=== PATIENT | male | born 1945 | race Caucasian/White ===

== ENCOUNTER 2019-04-25 14:52 | Observation (INO) | payer OTHER ==
[2019-04-25 15:25] LABS: Absolute Lymphocytes (CBC) 1.3 K/uL (0.7-4.9); Basophils % 0.2 % (0-1.3); Hematocrit 44.7 % (39.6-49.0); Lymphocytes % 19.9 % (15.3-44.8); MPV 8.4 fL (7.6-11.3); RBC Red Blood Cell Count 5.26 M/uL (4.33-5.43)
[2019-04-25 15:26] LABS: Protime INR 0.94
[2019-04-25 15:46] LABS: ALT/SGPT 59 U/L (12-78); AST/SGOT 30 U/L (15-37); Albumin 3.8 g/dL (3.4-5.0); Alkaline Phosphatase 73 U/L (45-117); BUN Blood Urea Nitrogen 13 mg/dL (7-18); Bicarbonate 33 mmol/L (21-32); Bilirubin Direct < 0.1 mg/dL (0-0.2); Bilirubin Total 0.3 mg/dL (0.2-1.0); Glucose Level 266 mg/dL (74-106); Magnesium 2.4 mg/dL (1.8-2.4); NT PRO-BNP 72 pg/mL (<125); Protein, Total 7.7 g/dL (6.4-8.2); Sodium Level 141 mmol/L (136-145); Troponin (Emerg Dept Use Only) < 0.02 ng/mL (0.0-0.045)
[2019-04-25] MEDS ORDERED: ASPIRIN 81 MG CHEWABLE TABLET ONE (15:51)
--- NOTE | 2019-04-25 15:59 | RAD REPORT ---
EXAM DESCRIPTION: RAD - Chest Single View - 04/25/2019 3:51 pm CLINICAL HISTORY: Chest pain COMPARISON: None. TECHNIQUE: AP portable chest image was obtained 1524 hours . FINDINGS: Lung volumes are low slightly accentuating the interstitial pattern. Significant interstit ial edema or infiltrate are not suspected. No focal mass or consolidation. Heart and vasculature are normal. No measurable pleural effusion and no pneumothorax. No acute bony abnormality seen. No acute aortic findings suspected. IMPRESSION: No acute cardiopulmonary process.
--- NOTE | 2019-04-25 17:01 | EDPHYS ---
Physician Documentation [facility] Name: Gabriel Rosenthal Sr Age: 74 yrs Sex: Male : 1945 Arrival Date: 04/25/2019 Time: 14:53 Bed 18 Private MD: Felipe Barry R ED Physician Yoli Salamanca HPI: 04/25 15:07 This 74 yrs old Male presents to ER via Ambulatory with complaints of Chest pm1 Pain. 15:07 The patient or guardian reports chest pain that is located primarily in the anterior pm1 aspect of right upper chest and anterior aspect of left upper chest. Onset: this morning, at 10:00. The pain does not radiate. Associated signs and symptoms: Pertinent positives: dizziness, shortness of breath, Pertinent negatives: abdominal pain, cough, headache, nausea, palpitations, vomiting. The chest pain is described as electric-like. Duration: The patient or guardian reports multiple episodes, the episodes last approximately 5 second(s). Modifying factors: The symptoms are alleviated by nothing. the symptoms are aggravated by nothing. Severity of pain: in the emergency department the pain has resolved is a 0 / 10. The patient has not experienced similar symptoms in the past. The patient has been recently seen by a physician: the patient's primary care provider, Dr. Barry earlier today, with similar presenting complaints, and was sent to the [facility] Emergency Department for further evaluation. Patient has not been taking his blood pressure medication for the past 3-4 months. Historical: - Allergies: 14:59 No Known Allergies; sv - PMHx: 14:59 Hypertension; sv - PSHx: 14:59 None; sv - Immunization history:: Flu vaccine is not up to date. - Social history:: Smoking status: Patient/guardian denies using tobacco, the patient reports quitting approximately 1 years ago. - Ebola Screening: : No symptoms or risks identified at this time. ROS: 15:07 Constitutional: Negative for fever, chills, and weight loss, Neck: Negative for injury, pm1 pain, and swelling. 15:07 Abdomen/GI: Negative for abdominal pain, nausea, vomiting, diarrhea, and constipation, Back: Negative for injury and pain, MS/Extremity: Negative for injury and deformity, Skin: Negative for injury, rash, and discoloration. 15:07 Cardiovascular: Positive for chest pain, Negative for edema, orthopnea, palpitations. 15:07 Respiratory: Positive for shortness of breath, baseline from his history of smoking in the past. 50 years of 1 pack per day.. 15:07 Neuro: Positive for dizziness, Negative for headache, numbness, weakness. Exam: 15:07 Constitutional: This is a well developed, well nourished patient who is awake, alert, pm1 and in no acute distress. Head/Face: Normocephalic, atraumatic. Eyes: Pupils equal round and reactive to light, extra-ocular motions intact. Lids and lashes normal. Conjunctiva and sclera are non-icteric and not injected. Cornea within normal limits. Periorbital areas with no swelling, redness, or edema. ENT: Nares patent. No nasal discharge, no septal abnormalities noted. Tympanic membranes are normal and external auditory canals are clear. Oropharynx with no redness, swelling, or masses, exudates, or evidence of obstruction, uvula midline. Mucous membranes moist. Neck: Trachea midline, no thyromegaly or masses palpated, and no cervical lymphadenopathy. Supple, full range of motion without nuchal rigidity, or vertebral point tenderness. No Meningismus. Chest/axilla: Normal chest wall appearance and motion. Nontender with no deformity. No lesions are appreciated. Cardiovascular: Regular rate and rhythm with a normal S1 and S2. No gallops, murmurs, or rubs. Normal PMI, no JVD. No pulse deficits. Respiratory: Lungs have equal breath sounds bilaterally, clear to auscultation and percussion. No rales, rhonchi or wheezes noted. No increased work of breathing, no retractions or nasal flaring. Abdomen/GI: Soft, non-tender, with normal bowel sounds. No distension or tympany. No guarding or rebound. No evidence of tenderness throughout. Back: No spinal tenderness. No costovertebral tenderness. Full range of motion. Skin: Warm, dry with normal turgor. Normal color with no rashes, no lesions, and no evidence of cellulitis. MS/ Extremity: Pulses equal, no cyanosis. Neurovascular intact. Full, normal range of motion. 15:07 Neuro: Orientation: is normal, Motor: is normal, moves all fours, Sensation: is normal, no obvious gross deficits. Vital Signs: 14:59 BP 218 / 90; Pulse 92; Resp 16; Temp 98; Pulse Ox 98% ; Weight 88.45 kg; Height 5 ft. 6 sv in. (167.64 cm); Pain 0/10; 15:55 BP 191 / 75; Pulse 88; Resp 18; Pulse Ox 99% on R/A; Pain 0/10; em 17:00 BP 178 / 76; Pulse 78; Resp 18; Pulse Ox 99% on R/A; Pain 0/10; em 17:41 BP 175 / 92; Pulse 75; Resp 18; Pulse Ox 99% on R/A; Pain 0/10; em 18:30 BP 152 / 74; Pulse 60; Resp 18; Pulse Ox 95% ; wh 19:30 BP 147 / 78; Pulse 57; Resp 18; Pulse Ox 95% on R/A; wh 14:59 Body Mass Index 31.47 (88.45 kg, 167.64 cm) sv MDM: 15:23 Patient medically screened. pm1 16:57 Data reviewed: vital signs. Data interpreted: Pulse oximetry: on room air is 99 %. pm1 Interpretation: normal. Counseling: I had a detailed discussion with the patient and/or guardian regarding: the historical points, exam findings, and any diagnostic results supporting the discharge/admit diagnosis, lab results, radiology results, the need for further work-up and treatment in the hospital. 16:57 ED course: Patient blood pressure improved in the ER without any blood pressure pm1 medications given. No chest pain present during ER visit. 16:58 Physician consultation: Felipe Barry MD was called at 16:55, was contacted at 16:55, pm1 regarding patient's condition, would like to put the patient in the hospital for observation with cardiology consultation. Give Lopressor 50 mg PO for blood pressure. 04/25 15:07 Order name: Basic Metabolic Panel; Complete Time: 16:14 pm1 04/25 15:07 Order name: CBC with Diff; Complete Time: 15:34 pm1 04/25 15:07 Order name: LFT's; Complete Time: 16:14 pm1 04/25 15:07 Order name: Magnesium; Complete Time: 16:14 pm1 04/25 15:07 Order name: NT PRO-BNP; Complete Time: 16:14 pm1 04/25 15:07 Order name: PT-INR; Complete Time: 15:34 pm1 04/25 15:07 Order name: Troponin (emerg Dept Use Only); Complete Time: 16:14 pm1 04/25 15:07 Order name: XRAY Chest (1 view); Complete Time: 16:14 pm1 04/25 15:07 Order name: EKG; Complete Time: 15:08 pm1 04/25 15:07 Order name: Cardiac monitoring; Complete Time: 15:26 pm1 04/25 15:07 Order name: EKG - Nurse/Tech; Complete Time: 15:27 pm1 04/25 15:07 Order name: IV Saline Lock; Complete Time: 15:27 pm1 04/25 15:07 Order name: Labs collected and sent; Complete Time: 15:27 pm1 04/25 15:07 Order name: O2 Per Protocol; Complete Time: 16:17 pm1 04/25 15:07 Order name: O2 Sat Monitoring; Complete Time: 16:17 pm1 Administered Medications: 15:54 Drug: Aspirin Chewable Tablet 324 mg Route: PO; em 17:06 Follow up: Response: No adverse reaction em 17:06 Drug: Lopressor (metoprolol TARTRATE) 50 mg Route: PO; em 20:13 Follow up: Response: No adverse reaction; Blood pressure is lowered Disposition: 04/26 07:28 Co-signature as Attending Physician, Yoli Salamanca MD. ma2 Disposition: 04/25/19 17:00 Hospitalization ordered by Felipe Barry for Observation. Preliminary diagnosis are Chest pain, unspecified, Essential (primary) hypertension. - Bed requested for Telemetry/MedSurg (observation). - Status is Observation. - Condition is Stable. - Problem is new. - Symptoms have improved. UTI on Admission? No Signatures: Dispatcher [employer] EDCamryn Gan Stephanie, DEANDRE RN Jewel Frey, VOCATIONAL COUNSELOR VOCATIONAL COUNSELOR em Karthik Dela Cruz, OPERATOR ENGINEER OPERATOR ENGINEER pm1 Melany Mo Yoli Salamanca MD MD ma2 Corrections: (The following items were deleted from the chart) 04/25 18:06 17:00 Hospitalization Ordered by Felipe Barry MD for Observation. Preliminary diagnosis bd is Chest pain, unspecified; Essential (primary) hypertension. Bed requested for Telemetry/MedSurg (observation). Status is Observation. Condition is Stable. Problem is new. Symptoms have improved. UTI on Admission? No. pm1 20:14 18:06 04/25/2019 17:00 Hospitalization Ordered by Felipe Barry MD for Observation. wh Preliminary diagnosis is Chest pain, unspecified; Essential (primary) hypertension. Bed requested for Telemetry/MedSurg (observation). Status is Observation. Condition is Stable. Problem is new. Symptoms have improved. UTI on Admission? No. bd
--- NOTE | 2019-04-25 17:01 | ER ---
Nurse's Notes [facility] Name: Gabriel Rosenthal Sr Age: 74 yrs Sex: Male : 1945 Arrival Date: 04/25/2019 Time: 14:53 Bed 18 Private MD: Felipe Barry R Diagnosis: Chest pain, unspecified;Essential (primary) hypertension Presentation: 04/25 14:58 Presenting complaint: Patient states: intermittent midsternal chest pain, dizziness, sv SOB started today. Went to go see Dr Barry and sent him over here. Reports hx of HTN but hasn't taken his meds in months because he ran out. Denies CP at this time. Transition of care: patient was not received from another setting of care. Onset of symptoms was April 25, 2019. Risk Assessment: Do you want to hurt yourself or someone else? Patient reports no desire to harm self or others. Initial Sepsis Screen: Does the patient meet any 2 criteria? HR > 90 bpm. No. Patient's initial sepsis screen is negative. Does the patient have a suspected source of infection? No. Patient's initial sepsis screen is negative. Care prior to arrival: None. 14:58 Method Of Arrival: Ambulatory sv 14:58 Acuity: CIERRA 2 sv Historical: - Allergies: 14:59 No Known Allergies; sv - PMHx: 14:59 Hypertension; sv - PSHx: 14:59 None; sv - Immunization history:: Flu vaccine is not up to date. - Social history:: Smoking status: Patient/guardian denies using tobacco, the patient reports quitting approximately 1 years ago. - Ebola Screening: : No symptoms or risks identified at this time. Screenin:55 Abuse screen: Denies threats or abuse. Nutritional screening: No deficits noted. em Tuberculosis screening: No symptoms or risk factors identified. Fall Risk None identified. Assessment: 15:30 General: Appears in no apparent distress. comfortable, Behavior is calm, cooperative, em Denies fever. Pain: Denies pain. Pain does not radiate. Pain began 2-3 days ago. Neuro: Level of Consciousness is awake, alert, obeys commands, Oriented to person, place, time, situation, Appropriate for age. Cardiovascular: Capillary refill < 3 seconds Patient's skin is warm and dry. Rhythm is sinus rhythm. Respiratory: Airway is patent Respiratory effort is even, unlabored, Respiratory pattern is regular, symmetrical. GI: Patient currently denies nausea, vomiting. Derm: Skin is intact, is healthy with good turgor, Skin is pink, warm \T\ dry. Musculoskeletal: Capillary refill < 3 seconds, Range of motion: intact in all extremities. 15:35 General: The previous assessment is accurate. Call light remains within reach. ss 15:55 Reassessment: Patient appears in no apparent distress at this time. Patient and/or em family updated on plan of care and expected duration. Pain level reassessed. Patient is alert, oriented x 3, equal unlabored respirations, skin warm/dry/pink. Patient denies pain at this time. 17:35 Reassessment: Patient appears in no apparent distress at this time. Patient and/or em family updated on plan of care and expected duration. Pain level reassessed. Patient is alert, oriented x 3, equal unlabored respirations, skin warm/dry/pink. Patient denies pain at this time. 18:27 Reassessment: Patient appears in no apparent distress at this time. Patient and/or em family updated on plan of care and expected duration. Pain level reassessed. Patient is alert, oriented x 3, equal unlabored respirations, skin warm/dry/pink. unable to give report at this time, charge nurse notified. 19:15 Reassessment: Patient appears in no apparent distress at this time. Patient and/or wh family updated on plan of care and expected duration. Pain level reassessed. Patient is alert, oriented x 3, equal unlabored respirations, skin warm/dry/pink. 20:11 Reassessment: Patient appears in no apparent distress at this time. No changes from previously documented assessment. Patient and/or family updated on plan of care and expected duration. Pain level reassessed. Patient is alert, oriented x 3, equal unlabored respirations, skin warm/dry/pink. Vital Signs: 14:59 BP 218 / 90; Pulse 92; Resp 16; Temp 98; Pulse Ox 98% ; Weight 88.45 kg; Height 5 ft. 6 sv in. (167.64 cm); Pain 0/10; 15:55 BP 191 / 75; Pulse 88; Resp 18; Pulse Ox 99% on R/A; Pain 0/10; em 17:00 BP 178 / 76; Pulse 78; Resp 18; Pulse Ox 99% on R/A; Pain 0/10; em 17:41 BP 175 / 92; Pulse 75; Resp 18; Pulse Ox 99% on R/A; Pain 0/10; em 18:30 BP 152 / 74; Pulse 60; Resp 18; Pulse Ox 95% ; wh 19:30 BP 147 / 78; Pulse 57; Resp 18; Pulse Ox 95% on R/A; wh 14:59 Body Mass Index 31.47 (88.45 kg, 167.64 cm) sv ED Course: 14:53 Patient arrived in ED. as 14:53 Felipe Barry MD is Private Physician. as 14:58 Jewel Madden LVN is Primary Nurse. em 14:59 Triage completed. sv 15:00 Arm band placed on. sv 15:06 Karthik Dela Cruz NP is PHCP. pm1 15:06 Yoli Salamanca MD is Attending Physician. pm1 15:24 Initial lab(s) drawn, by fl, sent to lab. Inserted saline lock: 20 gauge in left 5 antecubital area, using aseptic technique. Blood collected. 15:25 Patient has correct armband on for positive identification. Bed in low position. Call [facility] light in reach. Side rails up X 1. Adult w/ patient. Warm blanket given. cardiac monitor on. Pulse ox on. NIBP on. 15:26 Basic Metabolic Panel Sent. 5 15:26 CBC with Diff Sent. 5 15:26 LFT's Sent. 5 15:26 Magnesium Sent. 5 15:26 NT PRO-BNP Sent. 5 15:26 PT-INR Sent. 5 15:27 Troponin (emerg Dept Use Only) Sent. 5 15:51 XRAY Chest (1 view) In Process Unspecified. EDMS 16:59 Felipe Barry MD is Hospitalizing Provider. pm1 17:13 No provider procedures requiring assistance completed. Patient admitted, IV remains in ss place. Patient maintains SpO2 saturation greater than 95% on room air. Administered Medications: 15:54 Drug: Aspirin Chewable Tablet 324 mg Route: PO; em 17:06 Follow up: Response: No adverse reaction em 17:06 Drug: Lopressor (metoprolol TARTRATE) 50 mg Route: PO; em 20:13 Follow up: Response: No adverse reaction; Blood pressure is lowered Outcome: 17:00 Decision to Hospitalize by Provider. pm1 20:13 Admitted to Med/surg accompanied by tech, via wheelchair, room 216, with chart, Report wh called to Yudi Blanton RN 20:13 Condition: stable 20:13 Instructed on the need for admit. 20:14 Patient left the ED. Signatures: Dispatcher [employer] Ashley Sahni, RN RN Jewel Madden, SENIOR SUPPLY CHAIN ANALYST SENIOR SUPPLY CHAIN ANALYST em Moraima Ward Shelby, RN RN ss Marinas, Patrick, CYBER INSTRUCTOR CYBER INSTRUCTOR pm1 Ed, Prisca Melany You Corrections: (The following items were deleted from the chart) 15:00 14:58 Presenting complaint: Patient states: intermittent midsternal chest pain, sv dizziness, SOB started today. Went to go see Dr Barry and sent him over here. Reports hx of HTN but hasn't taken his meds in months because he ran out. sv
[2019-04-25] MEDS ORDERED: METOPROLOL TAR 50 MG TAB ONE (17:05)
[2019-04-25 20:59] VITALS: BMI 31.1
[2019-04-25] MEDS ORDERED: PNEUMOCOCCAL VACCINE 0.5 ML IMVAC ONE (21:24)
[2019-04-25] MEDS ORDERED: INFLUENZA VACCINE (for 3y+) 0.5 ML DOSE IMVAC ONE (21:24)
[2019-04-25 22:38] VITALS: O2SAT 93
[2019-04-25] MEDS: METOPROLOL TAR 50 MG TAB PO SCH (23:25)
[2019-04-26 03:02] LABS: Urine Appearance CLEAR; Urine Bilirubin NEGATIVE (NEG); Urine Blood NEGATIVE (NEG); Urine Color YELLOW; Urine Glucose TRACE (NEG); Urine Protein TRACE (NEG); Urine Specific Gravity 1.015 (1.005-1.030); Urine Urobilinogen 0.2 mg/dL (0.2-1.0); Urine pH 5.5 (5.0-7.0)
[2019-04-26 03:05] LABS: Urine Microscopic Reflex ORDER UMIC
[2019-04-26 03:16] LABS: Urine Bacteria <20 /HPF (NONE SEEN)
[2019-04-26 03:17] LABS: Urine Culture Reflex Order NOT NEEDED; Urine RBC NONE SEEN /HPF (NONE SEEN)
[2019-04-26 04:31] LABS: Absolute Lymphocytes (CBC) 1.8 K/uL (0.7-4.9); Basophils % 0.4 % (0-1.3); Hematocrit 44.2 % (39.6-49.0); Lymphocytes % 24.6 % (15.3-44.8); MPV 8.4 fL (7.6-11.3); RBC Red Blood Cell Count 5.13 M/uL (4.33-5.43)
[2019-04-26 04:50] LABS: Potassium 4.6 mmol/L (3.5-5.1)
--- NOTE | 2019-04-26 06:32 | EKG ---
Test Date: 2019-04-25 Test Time: 23:23:35 Certified Nuclear Medicine Technologist: RT MEASUREMENT RESULTS: Intervals: Rate: 58 VT: 166 QRSD: 88 QT: 418 QTc: 410 [place]: P: 56 VT: 166 QRS: 11 T: -81 INTERPRETIVE STATEMENTS: Sinus bradycardia ST & T wave abnormality, consider lateral ischemia Abnormal ECG Compared to ECG 11/16/1994 09:40:00 ST (T wave) deviation now present Possible ischemia now present Sinus rhythm no longer present T-wave abnormality no longer present Electronically Signed On 04-26-19 06:32:06 CLERICAL INVESTIGATOR by Ananth Cross
[2019-04-26] MEDS ORDERED: ASPIRIN EC 81 MG TAB PO SCH (09:00)
[2019-04-26] MEDS: METOPROLOL TAR 50 MG TAB PO SCH (11:46)
--- NOTE | 2019-04-26 11:55 | CON ---
Date of Consultation: 04/26/2019 Admitted on 04/25/[address] Barry's service. I saw the patient on 04/26/2019. Reason For Consultation: Chest pain. History Of Present Illness: Mr. Rosenthal is 74, has a history of hypertension. No previous cardiac h istory otherwise, came in with chest pain across his anterior chest that he describes as electrical s ensation, shooting pain, sharp, that would last seconds and keeps coming and going, sometimes for an hour or two. It was not exertional, nonradiating, not related to exertion, body position, food or ti me of the day. Denied PND, orthopnea, pedal edema, palpitations, or syncope. Allergies: NONE. Review of Systems: Negative. Social History: Negative. Family History: Negative. Medications: None. Physical Examination: Vital Signs: Stable. He was afebrile. HEENT: Negative. Neck: Supple. No bruit. Chest: Clear. Cardiac: Revealed a regular rhythm and rate with an S4 gallop. Abdomen: Benign. Extremities: Revealed no clubbing, cyanosis, or edema. Diagnostic Data: His creatinine is 1.22. Troponin is negative. BNP is negative. Chest x-ray is ne gative. EKG showed nonspecific changes versus inferolateral ischemia. Impression And Plan: Atypical chest pain, probably musculoskeletal or may be related to uncontrolled blood pressure and noncompliance. The patient was well counseled on salt restriction, weight restri ction, blood pressure medication. An echocardiogram is pending. I think this is normal. He can go home and I will make an arrangement for him to have an outpatient stress test. The case was discusse d with Dr. Barry. MARK/DELORES Voice ID: [id number] Report ID: [id number]
[2019-04-26 14:10] VITALS: BP 122/60
[2019-04-26 14:17] VITALS: TEMP 97.9
--- NOTE | 2019-04-26 21:31 | HP ---
Date of Admission: 04/25/2019 Chief Complaint: Recurrent chest pain. History Of Present Illness: A 74-year-old male was brought to the office with chest pain, however, t his is a recurrent chest pain. He was referred to ER for more acute evaluation of his symptoms. The patient was seen. He did not have any myocardial injury, however in view of his age, he was admitte d for observation. The patient denied any history of fever, chills, or rigors. Past Medical History: Positive for hypertension. No prior coronary artery disease. Allergies: NONE. Home Medications: Losartan. Review of Systems: No history of fever, chills, or rigors. Physical Examination: General: Revealed a 74-year-old male, alert for his age. HEENT: Negative. Neck: Supple. JVD negative. Chest: Clear. Heart: Regular. Abdomen: Soft, nontender. Extremities: No edema. Laboratory Data: EKG; no evidence of myocardial injury. Troponin normal. Assessment: 1.Chest pain. 2.Hypertension. Plan: The patient has been seen by Cardiology services and they agree that patient is stable for dis charge. He was advised the outpatient stress test. His echocardiogram was normal. PATTY/DELORES Voice ID: [id number]
--- NOTE | 2019-04-28 08:15 | EKG ---
Test Date: 2019-04-25 Test Time: 15:02:25 Cutter Grinder: MADALYN MEASUREMENT RESULTS: Intervals: Rate: 93 MI: 182 QRSD: 88 QT: 352 QTc: 437 [place]: P: 62 MI: 182 QRS: 14 T: 60 INTERPRETIVE STATEMENTS: Normal sinus rhythm Possible Left atrial enlargement Borderline ECG Compared to ECG 11/16/1994 09:40:00 T-wave abnormality no longer present Electronically Signed On 04-28-19 08:10:57 VISUAL MERCHANDISING COORDINATOR by Ananth Cross
== END 2019-04-26 12:30 | disposition home or self-care (01) ==
LOC: ER 14:52 → ERHOLD 17:03 → 2ND 19:59
PROVIDERS: ADMIT Internal Medicine; ATTEND Internal Medicine
DX: R07.9 Chest pain, unspecified (principal); I10 Essential (primary) hypertension
CPT/HCPCS: 93005 ×2; 85025 ×2; 80048 ×2; 36415; 83735; 85610; 80076; 84484 ×3; 83880; 71045; 99285; G0378 ×3; 81003; 81015

== ENCOUNTER 2020-07-12 11:07 | Emergency (ER) | payer OTHER ==
[2020-07-12 16:35] LABS: Basophils % 3.1 % (0-1.3); Hematocrit 31.2 % (39.6-49.0); MPV 8.3 fL (7.6-11.3); RBC Red Blood Cell Count 4.46 M/uL (4.33-5.43)
[2020-07-12] MEDS ORDERED: NA CHLORIDE 0.9% 500 ML ONE (16:35)
[2020-07-12] MEDS ORDERED: MORPHINE 2 MG/ML SYR ONE (16:35)
[2020-07-12 16:52] LABS: Bilirubin Direct 0.1 mg/dL (0-0.2); Bilirubin Total 0.5 mg/dL (0.2-1.0); Magnesium 2.3 mg/dL (1.8-2.4); Potassium 4.1 mmol/L (3.5-5.1); Protein, Total 8.4 g/dL (6.4-8.2)
--- NOTE | 2020-07-12 17:22 | RAD REPORT ---
EXAM DESCRIPTION: CT - Abdomen Pelvis W Contrast - 07/12/2020 5:05 pm CLINICAL HISTORY: Abdominal pain COMPARISON: none. TECHNIQUE: Computed axial tomography of the abdomen pelvis was obtained. 100 cc Isovue-300 was admin istered intravenously. Oral contrast was not requested which limits evaluation of bowel. All CT scans are performed using dose optimization technique as appropriate and may include automated exposure control or mA/KV adjustment according to patient size. FINDINGS: Multiple, bilateral pulmonary nodules vary in size from 1 to 4 millimeters. Multiple hepatic lesions varying size from a few millimeters to 2.1 centimeters. 6 centimeter partially necrotic mass within the pancreatic body. Several lymph nodes within the gastr ohepatic ligament peripancreatic region measuring up to 14 millimeters. Upper abdominal varices Prominence of the adrenal glands. Spleen and kidney unremarkable. Diverticula stem from the colon wit hout evidence of diverticulitis. 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
--- NOTE | 2020-07-12 17:57 | ER ---
Nurse's Notes [facility] Name: Gabriel Rosenthal Sr Age: 75 yrs Sex: Male : 1945 Arrival Date: 07/12/2020 Time: 11:11 Bed 25 Private MD: Felipe Barry R Diagnosis: Anemia in chronic diseases classified elsewhere;Malignant neoplasm of pancreas Presentation: 07/12 12:24 Chief complaint: Patient states: Upper abdominal pain radiating to the back started 6 - ca1 7 days [employer], has gotten worse. Pain is worse when laying down, sitting up eases the pain. Denies N/V/D. Last BM was 6 days ago. Coronavirus screen: Client denies travel out of the [place] in the last 14 days. At this time, the client does not indicate any symptoms associated with coronavirus-19. Ebola Screen: Patient negative for fever greater than or equal to 101.5 degrees Fahrenheit, and additional compatible Ebola Virus Disease symptoms Patient denies exposure to infectious person. Patient denies travel to an Ebola-affected area in the 21 days before illness onset. No symptoms or risks identified at this time. Initial Sepsis Screen: Does the patient meet any 2 criteria? No. Patient's initial sepsis screen is negative. Does the patient have a suspected source of infection? No. Patient's initial sepsis screen is negative. Risk Assessment: Do you want to hurt yourself or someone else? Patient reports no desire to harm self or others. Onset of symptoms was July 12, 2020. 12:24 Method Of Arrival: Ambulatory ca1 12:24 Acuity: CIERRA 3 ca1 Historical: - Allergies: 12:29 No Known Allergies; ca1 - PMHx: 12:29 Hypertension; Diabetes - NIDDM; ca1 - PSHx: 12:29 None; ca1 - Immunization history:: Client reports receiving the 1st dose of the Covid vaccine, June 30, 2020 Flu vaccine is up to date. - Social history:: Smoking status: Patient denies any tobacco usage or history of. Screenin:00 Abuse screen: Denies threats or abuse. Nutritional screening: No deficits noted. aa5 Tuberculosis screening: No symptoms or risk factors identified. Fall Risk None identified. Assessment: 16:00 General: Appears uncomfortable, Behavior is calm, cooperative. Pain: Complains of pain aa5 in right upper quadrant and left upper quadrant Pain currently is 7 out of 10 on a pain scale. Is continuous. Neuro: Level of Consciousness is awake, alert, obeys commands, Oriented to person, place, time, situation. Cardiovascular: Patient's skin is warm and dry. Respiratory: Airway is patent Respiratory effort is even, unlabored, Respiratory pattern is regular, symmetrical. GI: Abdomen is round non-distended, Bowel sounds present X 4 quads. Abd is soft and non tender X 4 quads. Patient currently denies diarrhea, nausea, vomiting. : No signs and/or symptoms were reported regarding the genitourinary system. EENT: No signs and/or symptoms were reported regarding the EENT system. Derm: Skin is pink, warm \T\ dry. Musculoskeletal: Range of motion: intact in all extremities. 17:20 Reassessment: Patient is alert, oriented x 3, equal unlabored respirations, skin aa5 warm/dry/pink. Patient states feeling better. Pt reports he does not need the 2nd dose of morphine at this time. Pt reminded of need for urine specimen. . 18:40 Reassessment: Patient is alert, oriented x 3, equal unlabored respirations, skin aa5 warm/dry/pink. Patient states feeling better. Patient states symptoms have improved. Vital Signs: 12:24 BP 184 / 62; Pulse 63; Resp 18 S; Temp 97.6(TE); Pulse Ox 100% on R/A; Weight 73.03 kg ca1 (R); Height 5 ft. 6 in. (167.64 cm) (R); Pain 6/10; 16:30 BP 176 / 65; Pulse 65; Resp 16 S; Pulse Ox 99% on R/A; aa5 17:30 BP 163 / 72; Pulse 68; Resp 16 S; Pulse Ox 99% on R/A; aa5 18:20 BP 166 / 73; Pulse 70; Resp 18 S; Pulse Ox 98% on R/A; aa5 12:24 Body Mass Index 25.99 (73.03 kg, 167.64 cm) ca1 ED Course: 11:11 Patient arrived in ED. ds1 11:11 Felipe Barry MD is Private Physician. ds1 12:27 Triage completed. ca1 12:29 Arm band placed on right wrist. ca1 15:46 Kenneth [facility]ribe [facility]. cp 15:46 Kenneth Hobson MD is Attending Physician. cp 15:48 Elizabeth Redd, RN is Primary Nurse. aa5 16:00 Patient has correct armband on for positive identification. aa5 16:10 Initial lab(s) drawn, by me, sent to lab. Inserted saline lock: 20 gauge in left aa5 antecubital area, using aseptic technique. Blood collected. 17:50 Urine collected: clean catch specimen. aa5 17:54 Felipe Barry MD is Referral Physician. cp 18:40 No provider procedures requiring assistance completed. IV discontinued, intact, aa5 bleeding controlled, No redness/swelling at site. Pressure dressing applied. Administered Medications: 16:10 Drug: NS 0.9% 500 ml Route: IV; Rate: 500 ml/hr; Site: left antecubital; aa5 17:20 Follow up: IV Status: Completed infusion; IV Intake: 500ml aa5 16:10 Drug: morphine 2 mg Route: IVP; Site: left antecubital; aa5 18:40 Follow up: Pt refused 2nd dose of morphine aa5 17:45 Drug: ProTONIX 40 mg Route: IVP; Site: left antecubital; aa5 17:50 Follow up: Response: No adverse reaction aa5 Intake: 17:20 IV: 500ml; Total: 500ml. aa5 Outcome: 17:56 Discharge ordered by MD. cp 18:40 Discharged to home ambulatory, with significant other. aa5 18:40 Condition: improved 18:40 Discharge instructions given to patient, Instructed on discharge instructions, follow up and referral plans. medication usage, Demonstrated understanding of instructions, follow-up care, medications, Prescriptions given X 3. 18:42 Patient left the ED. aa5 Signatures: Kristin Herrera ds1 Elizabeth Redd, RN RN aa5 Kenneth Uribe PA PA Lilo Pace RN RN ca1
--- NOTE | 2020-07-12 17:57 | EDPHYS ---
Physician Documentation [facility] Name: Gabriel Rosenthal Sr Age: 75 yrs Sex: Male : 1945 Arrival Date: 07/12/2020 Time: 11:11 Bed 25 Private MD: Felipe Barry R ED Physician Kenneth Hobson HPI: 07/12 16:00 This 75 yrs old Male presents to ER via Ambulatory with complaints of Right cp Side Pain. 16:00 The patient presents with abdominal pain mid abdomen. Onset: The symptoms/episode cp began/occurred 1 week(s) ago. Associated signs and symptoms: Pertinent positives: anorexia, constipation, right flank pain, Pertinent negatives: nausea and vomiting, diarrhea, dysuria, fever, testicular pain. The symptoms are described as dull, waxing/waning. Historical: - Allergies: 12:29 No Known Allergies; ca1 - PMHx: 12:29 Hypertension; Diabetes - NIDDM; ca1 - PSHx: 12:29 None; ca1 - Immunization history:: Client reports receiving the 1st dose of the Covid vaccine, June 30, 2020 Flu vaccine is up to date. - Social history:: Smoking status: Patient denies any tobacco usage or history of. ROS: 16:05 Constitutional: Positive for weight loss, Negative for body aches, chills, fever, poor cp PO intake. 16:05 Eyes: Negative for injury, pain, redness, and discharge. cp 16:05 ENT: Negative for ear pain, sore throat, difficulty swallowing, difficulty handling secretions. 16:05 Cardiovascular: Negative for chest pain, edema, palpitations. 16:05 Respiratory: Negative for cough, shortness of breath, wheezing. 16:05 Abdomen/GI: Positive for abdominal pain, constipation, anorexia, Negative for vomiting, diarrhea, black/tarry stool, rectal bleeding. 16:05 Back: Positive for radiated pain. 16:05 : Negative for urinary symptoms, flank pain, testicular pain 16:05 Neuro: Negative for altered mental status, dizziness, headache, syncope, weakness. 16:05 All other systems are negative. Exam: 16:10 Constitutional: The patient appears in no acute distress, alert, awake, cp non-diaphoretic, non-toxic, well developed, well nourished. 16:10 Head/Face: Normocephalic, atraumatic. cp 16:10 Eyes: Periorbital structures: appear normal, Conjunctiva: normal, no exudate, no injection, Sclera: no appreciated abnormality, Lids and lashes: appear normal, bilaterally. 16:10 ENT: External ear(s): are unremarkable, Nose: is normal, Mouth: Lips: moist, Oral mucosa: moist, Posterior pharynx: Airway: no evidence of obstruction, patent. 16:10 Chest/axilla: Inspection: normal, Palpation: is normal, no crepitus, no tenderness. 16:10 Cardiovascular: Rate: normal, Rhythm: regular, Edema: is not appreciated, JVD: is not appreciated. 16:10 Respiratory: the patient does not display signs of respiratory distress, Respirations: normal, no use of accessory muscles, no retractions, labored breathing, is not present, Breath sounds: are clear throughout, no decreased breath sounds, no stridor, no wheezing. 16:10 Abdomen/GI: Inspection: abdomen appears normal, Bowel sounds: active, all quadrants, Palpation: soft, in all quadrants, moderate abdominal tenderness, in the epigastric area, rebound tenderness, is not appreciated, involuntary guarding, is not appreciated. 16:10 Back: CVA tenderness, is absent. 16:10 Neuro: Orientation: to person, place \T\ time. Mentation: is normal. 17:25 : Rectal exam: Stool: brown, Guaiac testing: results were positive for occult blood, cp hemorrhoid(s), are not appreciated. Vital Signs: 12:24 BP 184 / 62; Pulse 63; Resp 18 S; Temp 97.6(TE); Pulse Ox 100% on R/A; Weight 73.03 kg ca1 (R); Height 5 ft. 6 in. (167.64 cm) (R); Pain 6/10; 16:30 BP 176 / 65; Pulse 65; Resp 16 S; Pulse Ox 99% on R/A; aa5 17:30 BP 163 / 72; Pulse 68; Resp 16 S; Pulse Ox 99% on R/A; aa5 18:20 BP 166 / 73; Pulse 70; Resp 18 S; Pulse Ox 98% on R/A; aa5 12:24 Body Mass Index 25.99 (73.03 kg, 167.64 cm) ca1 MDM: 15:55 Patient medically screened. nahed 16:30 Differential diagnosis: bowel obstruction, cholecystitis, Cholelithiasis, gastritis, cp gastroesophageal reflux disease, GI Bleed, non-specific abd pain, pancreatitis, Peptic Ulcer Disease, Perf. Duodenal Ulcer, Perf. Gastric Ulcer. 17:53 Data reviewed: vital signs, nurses notes, lab test result(s), radiologic studies, CT cp scan, I have discussed the patient's presentation/case with the attending Emergency Department Physician; and as a result, I will discharge patient. Physician consultation: Felipe Barry MD was called at 17:53, was contacted at 17:54, regarding patient's condition, and will see patient in office, tomorrow. 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 17:55 Response to treatment: the patient's symptoms have markedly improved after treatment. cp ED course: VSS. Pain improved. Anemia appears stable. Patient instructed to f/u with DR Barry tomorrow in clinic for reevaluation and to coordinate further care. 07/12 16:03 Order name: Basic Metabolic Panel 07/12 16:03 Order name: CBC with Diff cp 07/12 16:03 Order name: Hepatic Function cp 07/12 16:03 Order name: Lipase cp 07/12 16:03 Order name: Urine Microscopic Only cp 07/12 16:03 Order name: Magnesium cp 07/12 16:03 Order name: CT Abd/Pelvis - IV Contrast Only 07/12 16:49 Order name: CBC with Automated Diff; Complete Time: 17:11 EDMS 07/12 17:11 Interpretation: Normal except: HGB 9.8; HCT 31.2; MCV 70.0; MCH 21.9; MCHC 31.3; RDW cp 16.0; LYM% 14.0; BASO% 3.1. 07/12 16:52 Order name: Basic Metabolic Panel; Complete Time: 17:11 EDMS 07/12 17:11 Interpretation: Normal except: GLUC 128; GFR 68. cp 07/12 16:52 Order name: Liver (Hepatic) Function; Complete Time: 17:11 EDMS 07/12 17:12 Interpretation: Normal except: TP 8.4; GLOB 4.4; A/G 0.9. cp 07/12 16:52 Order name: Magnesium; Complete Time: 17:11 EDMS 07/12 16:52 Order name: Lipase; Complete Time: 17:11 EDFL 07/12 17:13 Interpretation: Within normal limits: LIP 336. 07/12 17:57 Order name: Urine Dipstick--Ancillary (enter results) 07/12 18:34 Order name: Urine Microscopic Only EDFL 07/12 16:03 Order name: IV Saline Lock; Complete Time: 16:16 07/12 16:03 Order name: Labs collected and sent; Complete Time: 16:16 cp 07/12 16:03 Order name: Urine Dipstick-Ancillary (obtain specimen); Complete Time: 17:56 cp 07/12 17:23 Order name: CT; Complete Time: 17:23 EDFL 07/12 17:34 Order name: PO challenge; Complete Time: 18:42 cp Administered Medications: 16:10 Drug: NS 0.9% 500 ml Route: IV; Rate: 500 ml/hr; Site: left antecubital; aa5 17:20 Follow up: IV Status: Completed infusion; IV Intake: 500ml aa5 16:10 Drug: morphine 2 mg Route: IVP; Site: left antecubital; aa5 18:40 Follow up: Pt refused 2nd dose of morphine aa5 17:45 Drug: ProTONIX 40 mg Route: IVP; Site: left antecubital; aa5 17:50 Follow up: Response: No adverse reaction aa5 Disposition: 07/13 07:51 Co-signature as Attending Physician, Kenneth Hobson MD I agree with the assessment and nahed plan of care. Disposition: 07/12/20 17:56 Discharged to Home. Impression: Anemia in chronic diseases classified elsewhere, Malignant neoplasm of pancreas. - Condition is Stable. - Discharge Instructions: Anemia, Nonspecific, Iron-Rich Diet. - Prescriptions for Protonix 40 mg Oral Tablet - take 1 tablet by ORAL route once daily; 30 tablet. Zofran 4 mg Oral Tablet - take 1 tablet by ORAL route every 12 hours As needed; 20 tablet. Bentyl 20 mg Oral Tablet - take 1 tablet by ORAL route every 6 hours As needed; 20 tablet. - Medication Reconciliation Form, Thank You Letter, Antibiotic Education, Prescription Opioid Use form. - Follow up: Felipe Barry MD; When: Tomorrow; Reason: Recheck today's complaints. - Problem is new. - Symptoms have improved. Signatures: Dispatcher [employer] EDMS Kenneth Hobson MD MD cha Calderon, Audri RN RN aa5 Kenneth Uribe PA PA cp Acob, Lilo RN RN ca1 Corrections: (The following items were deleted from the chart) 07/12 17:57 17:56 07/12/2020 17:56 Discharged to Home. Impression: Malignant neoplasm of head of cp pancreas; Anemia in chronic diseases classified elsewhere. Condition is Stable. Forms are Medication Reconciliation Form, Thank You Letter, Antibiotic Education, Prescription Opioid Use. Follow up: Felipe Barry; When: Tomorrow; Reason: Recheck today's complaints. Problem is new. Symptoms have improved. cp 18:42 17:57 07/12/2020 17:56 Discharged to Home. Impression: Anemia in chronic diseases aa5 classified elsewhere; Malignant neoplasm of pancreas. Condition is Stable. Forms are Medication Reconciliation Form, Thank You Letter, Antibiotic Education, Prescription Opioid Use. Follow up: Felipe Barry; When: Tomorrow; Reason: Recheck today's complaints. Problem is new. Symptoms have improved. cp
[2020-07-12] MEDS ORDERED: PANTOPRAZOLE 40 MG INJ ONE (18:04)
[2020-07-12 18:34] LABS: Urine Bacteria <20 /HPF (NONE SEEN); Urine RBC <5 /HPF (NONE SEEN)
[2020-07-12 18:47] VITALS: TEMP 97.6
[2020-07-12 18:48] VITALS: BP 176/65; O2SAT 99
[2020-07-12 19:45] LABS: Urine Blood NEGATIVE (NEG); Urine Glucose NEGATIVE (NEG); Urine Protein NEGATIVE (NEG); Urine Specific Gravity 1.015 (1.005-1.030); Urine pH 7.5 (5.0-7.0)
== END 2020-07-12 18:42 | disposition home or self-care (01) ==
LOC: ER 11:07
DX: C25.9 Malignant neoplasm of pancreas, unspecified (principal); D63.8 Anemia in other chronic diseases classified elsewhere; I10 Essential (primary) hypertension
CPT/HCPCS: 85025; 80048; 36415; 83735; 80076; 83690; 74177; Q9967; C9113; J2270; J7040; 81003; 81015; 96361; 96374; 96375; 99284